=== PATIENT | female | born 1965 | race Caucasian/White ===

== ENCOUNTER → 2016-03-24 | Outpatient (CLI) | payer BC ==
--- NOTE | 2016-03-26 08:11 | KCIC ---
EXAM: Bilateral digital screening mammogram. HISTORY: 50-year-old female presents for screening mammography. COMPARISON: 11/01/2014 TECHNIQUE: Full field digital craniocaudal and mediolateral oblique views of both breasts are obtained. Computer-aided detection is applied. FINDINGS: Breast parenchymal composition: Level B - Scattered fibroglandular densities. There is no new suspicious mass, calcification or architectural distortion within either breast. IMPRESSION: BI-RADS Category 2: Benign findings. Annual mammography is recommended. This study was interpreted with the benefit of Computerized Aided Detection (CAD). Mammography is not 100% sensitive in detecting breast cancer. Therefore, a self breast exam and a clinical breast exam are very important. A negative mammogram does not negate a clinically suspicious finding and should not result in a delay in biopsying a clinically suspicious abnormality. The patient information was entered into the reminder system with a target for her next mammogram. Electronically signed by: Serenity Anaya (Mar 26, 2016 08:09:45)
== END | disposition home or self-care (01) ==
LOC: KCIC MAMMO 12:09
PROVIDERS: ATTEND Obstetrics & Gynecology
DX: Z12.31 Encounter for screening mammogram for malignant neoplasm of breast (principal)
CPT/HCPCS: G0202; 77067

== ENCOUNTER → 2016-05-03 | Outpatient (CLI) | payer OTHER, BC ==
--- NOTE | 2016-05-03 14:19 | RAD ---
EXAM: Left clavicle 2 views. HISTORY: Left clavicular and shoulder pain after injury. COMPARISON: None. FINDINGS: No fractures are identified. The left acromioclavicular and sternoclavicular joint spaces and alignment are maintained. IMPRESSION: 1. No fracture or malalignment.
--- NOTE | 2016-05-03 16:02 | RAD ---
EXAM: Cervical spine 6 views. HISTORY: Fall, neck and left shoulder pain. COMPARISON: None. FINDINGS: The alignment of the cervical spine is maintained. Degenerative disc disease is moderate at C6-7 and mild at C5-6. There is no prevertebral soft tissue swelling. No fractures are identified. On the right, the neural foramina are not well profiled. There appears be moderate to severe stenosis at at C6-7. Stenosis appears moderate at C5-6 and mild more superiorly. On the left, there is mild stenosis from C5 through T1. IMPRESSION: 1. Degenerative disc disease is mild at C5-6 and moderate at C6-7. 2. Foraminal stenosis is moderate to severe on the right at C6-7 and moderate at C5-6. It is mild left from C5 through T1.
== END | disposition home or self-care (01) ==
LOC: RAD 12:33
PROVIDERS: ATTEND Nurse Practitioner Family
DX: M54.2 Cervicalgia (principal); M25.512 Pain in left shoulder
CPT/HCPCS: 72050; 73000

== ENCOUNTER → 2016-05-05 | Outpatient (CLI) | payer OTHER, BC ==
--- NOTE | 2016-05-05 09:03 | RAD ---
PROCEDURE Cervical spine MRI without contrast. HISTORY Pain status post fall. TECHNIQUE Multiplanar and multi sequence magnetic resonance imaging of the cervical spine was performed without contrast. COMPARISON None. FINDINGS There is no significant listhesis. The vertebral bodies are normal in height. There is degenerative endplate remodeling primarily at C6-C7, and to a lesser extent, C5-C6. No spinal cord lesion is seen. The posterior fossa and skullbase are unremarkable. At C2-C3, there is a disc bulge with suspected right foraminal annular tear. There is no stenosis. At C3-C4, there is a disc bulge and endplate remodeling. There is mild right greater than left facet arthropathy. There is mild right foraminal stenosis. At C4-C5, there is a shallow posterior central disc protrusion and annular tear superimposed on a disc bulge and endplate remodeling. There is mild facet arthropathy. There is no stenosis. At C5-C6, there is a broad-based posterior central disc protrusion and annular tear superimposed on a disc bulge and endplate remodeling. There is mild facet arthropathy. There is uncovertebral arthropathy. There is flattening of the ventral aspect of the spinal cord with minimal central canal stenosis measuring 9.4 mm in anterior-posterior dimension. At C6-C7, there is a disc bulge and endplate remodeling. There is uncovertebral arthropathy. There is no stenosis. IMPRESSION 1. Multilevel degenerative change within the cervical spine, described in detail above. This results in mild foraminal stenosis at C3-C4 and slight flattening of the ventral aspect of the spinal cord with minimal central canal stenosis at C5-C6. 2. No acute finding. Electronically signed by: Serenity Anaya (May 05, 2016 09:01:27)
== END | disposition home or self-care (01) ==
LOC: MRI 07:56
PROVIDERS: ATTEND Nurse Practitioner Family
DX: M50.30 Other cervical disc degeneration, unspecified cervical region (principal); M48.02 Spinal stenosis, cervical region
CPT/HCPCS: 72141

== ENCOUNTER → 2017-04-07 | Outpatient (CLI) | payer OTHER, BC | END | disposition home or self-care (01) | LOC: KCIC MAMMO 07:47 | DX: Z12.31 Encounter for screening mammogram for malignant neoplasm of breast (principal) | CPT/HCPCS: 77063; 77067 ==

== ENCOUNTER → 2018-02-14 | Outpatient (CLI) | payer OTHER, BC ==
[2018-02-14 08:22] LABS: BASO # 0.1 x10^3/uL (0.0-0.2); BASO % 1 % (0-3); EOS # 0.2 x10^3/uL (0.0-0.7); EOS % 3 % (0-3); HEMATOCRIT 44.6 % (36.0-47.0); HEMOGLOBIN 15.3 g/dL (12.0-15.5); LYMPH % 26 % (24-48); MEAN CORPUSCULAR HEMOGLOBIN 31 pg (25-35); MEAN CORPUSCULAR HGB CONC 34 g/dL (31-37); MEAN CORPUSCULAR VOLUME 90 fL (79-100); MONO # 0.6 x10^3/uL (0.0-1.1); MONO % 8 % (0-9); NEUT # 4.9 x10^3uL (1.8-7.7); NEUT % 63 % (31-73); PLATELET COUNT 390 x10^3/uL (140-400); RED BLOOD COUNT 4.96 x10^6/uL (3.50-5.40); RED CELL DISTRIBUTION WIDTH 13.4 % (11.5-14.5); WHITE BLOOD COUNT 7.8 x10^3/uL (4.0-11.0)
[2018-02-14 08:34] LABS: ALBUMIN 4.1 g/dL (3.4-5.0); ALBUMIN/GLOBULIN RATIO 1.1 (1.0-1.7); CALCIUM 9.3 mg/dL (8.5-10.1); CHOLESTEROL/HDL RATIO 3.6; CREATININE 0.7 mg/dL (0.6-1.0); GFR 87.9; POTASSIUM 4.7 mmol/L (3.5-5.1); TOTAL BILIRUBIN 0.2 mg/dL (0.2-1.0)
[2018-02-14 08:42] LABS: FREE T4 0.85 ng/dL (0.76-1.46); THYROID STIM HORMONE (TSH) 3.869 uIU/mL (0.358-3.74)
== END | disposition home or self-care (01) ==
LOC: LAB 07:25
PROVIDERS: ATTEND Family Medicine
DX: I10 Essential (primary) hypertension (principal)
CPT/HCPCS: 36415; 80053; 80061; 84439; 84443; 85025

== ENCOUNTER → 2018-06-13 | Outpatient (CLI) | payer BC ==
--- NOTE | 2018-06-13 17:22 | KCIC ---
BILATERAL SCREENING MAMMOGRAM History: Routine screening. Comparison: Bilateral mammogram April 07, 2017 and dating back to 2014. Technique: Routine bilateral digital mammogram views were obtained. Findings: Breast Tissue Density B : There are scattered areas of fibroglandular density. There are no dominant masses, suspicious microcalcifications, or architectural distortion. IMPRESSION: No mammographic evidence of malignancy. Recommend routine screening. BI-RADS category 1: Negative. The images were reviewed with computer aided detection. Patient information is entered into the reminder system with a target due date for the next screening mammogram. Mammography is the most sensitive method for finding small breast cancers, but it does not detect them all and is not a substitute for careful clinical examination. A negative mammogram does not negate a clinically suspicious finding and should not result in delay in biopsying a clinically suspicious abnormality. "Our facility is accredited by the [employer] Mammography Program." Electronically signed by: Fredrick Dsouza MD (06/13/2018 5:19 PM) [id number]
== END | disposition home or self-care (01) ==
LOC: KCIC MAMMO 13:54
PROVIDERS: ATTEND Family Medicine
DX: Z12.31 Encounter for screening mammogram for malignant neoplasm of breast (principal)
CPT/HCPCS: 77067

== ENCOUNTER → 2019-09-03 | Outpatient (CLI) | payer BC ==
--- NOTE | 2019-09-03 15:58 | KCIC ---
Bilateral digital screening mammograms: Reason for examination: Routine screening. Comparison is made to previous studies dated back to 03/24/2016. Interpretation was made with the benefit of CAD. The skin and nipples show no abnormalities. No abnormal axillary lymph nodes are seen. The breast parenchyma shows scattered fibroglandular density. (Breast density: Category B.) There are no dominant masses, suspicious calcifications or architectural distortions. Impression: No evidence of malignancy. Recommend routine screening. BI-RADS Category 2: Benign. "Our facility is accredited by the [employer] Mammography Program." This patient's information has been entered into a reminder system for the patient to be notified with the results of her examination and a target date for the next mammogram. Electronically signed by: Yanet Leach MD (09/03/2019 3:55 PM) [email or web address]
== END | disposition home or self-care (01) ==
LOC: KCIC MAMMO 12:26
PROVIDERS: ATTEND Family Medicine
DX: Z12.31 Encounter for screening mammogram for malignant neoplasm of breast (principal)
CPT/HCPCS: 77067

== ENCOUNTER → 2020-09-17 | Outpatient (CLI) | payer BC ==
--- NOTE | 2020-09-17 17:57 | KCIC ---
Bilateral digital screening mammograms: Reason for examination: Routine screening. Comparison is made to previous study dated 09/03/2019, 06/13/2018, and 04/07/2017. Interpretation was made with the benefit of CAD. Findings: Breast density: Category B. There are cattered areas of fibroglandular density.. There are no suspicious masses, calcifications or architectural distortions. Impression: No evidence of malignancy. Assessment: BI-RADS Category 1: Negative. Recommendation: Routine screening mammograms. This patient's information has been entered into a reminder system for the patient to be notified wit h the results of her examination and a target date for the next mammogram. Electronically signed by: Guerline Holt MD (09/17/2020 5:55 PM) [email or web address]
== END ==
LOC: KCIC MAMMO 13:28
PROVIDERS: ATTEND Family Medicine
DX: Z12.31 Encounter for screening mammogram for malignant neoplasm of breast (principal)
CPT/HCPCS: 77067